=== PATIENT | male | born 2000 | race Caucasian/White ===

== ENCOUNTER 2025-02-18 08:59 | Emergency (ER) | payer OTHER ==
[2025-02-18] MEDS ORDERED: Ibuprofen 600 MG TAB ONE (09:20)
[2025-02-18] MEDS ORDERED: predniSONE 20 MG TAB ONE (10:47)
== END 2025-02-18 10:54 | disposition home or self-care (01) ==
LOC: MADERS 08:59
DX: S93.601A Unspecified sprain of right foot, initial encounter (principal); F17.290 Nicotine dependence, other tobacco product, uncomplicated; X50.1XXA Overexertion from prolonged static or awkward postures, initial encounter; Y92.009 Unspecified place in unspecified non-institutional (private) residence as the place of occurrence of the external cause
CPT/HCPCS: 99283; J7512